=== PATIENT | male | born 1960 | race Caucasian/White ===

== ENCOUNTER 2021-06-21 11:39 | Emergency (ER) | payer OTHER ==
[2021-06-21 12:52] LABS: BASOPHIL 0.5 % (0-2); EOSINOPHIL 0.1 % (0-5); HCT 43.9 % (42.0-52.0); HGB 15.5 g/dl (13.2-18.0); LYMPHOCYTE 10.1 % (15-48); MCH 31.3 pg (25.0-31.0); MCHC 35.3 g/dL (32.0-36.0); MCV 88.5 fL (78.0-100.0); MONOCYTE 2.9 % (0-12); MPV 10.2 fL (6.0-9.5); NEUTROPHIL 85.8 % (41-80); NRBC 0; PLT 390 K/uL (150-400); RBC 4.96 M/uL (4.70-6.00); RDW 12.2 % (11.5-14.0); WBC 10.7 K/uL (4.0-10.5)
[2021-06-21 13:12] LABS: ALBUMIN 4.6 g/dL (3.4-5.0); BILIRUBIN - TOTAL 0.7 mg/dL (0.2-1.0); BUN/CREAT RATIO (CALC) 12.7 RATIO; CREATININE 1.02 mg/dL (0.67-1.17); GLOBULIN (CALCULATION) 3.8 g/dL; POTASSIUM 4.1 mmol/L (3.5-5.1); TOTAL PROTEIN 8.4 g/dL (6.4-8.2)
[2021-06-21 13:42] LABS: BILIRUBIN NEGATIVE (NEGATIVE); BLOOD TRACE-INTACT Ery/uL (NEGATIVE); CLARITY CLEAR (CLEAR); COLOR YELLOW (YELLOW); GLUCOSE (U) NORMAL (NORMAL); LEUKOCYTES NEGATIVE Leu/uL (NEGATIVE); NITRITE NEGATIVE (NEGATIVE); PROTEIN TRACE (LOW) mg/dL (NEGATIVE); UROBILINOGEN 0.2 mg/dL (0.2-1.0)
[2021-06-21 13:50] LABS: URINARY WBC RARE
[2021-06-21 13:51] LABS: BACTERIA TRACE; SQUAMOUS EPITHELIAL CELLS RARE
[2021-06-21] MEDS ORDERED: NORCO 5/3251 EACH PO (16:29)
[2021-06-21] MEDS ORDERED: ONDANSETRON HCL4 MG PO (16:29)
[2021-06-21] MEDS ORDERED: BENTYL10 MG PO (16:29)
== END 2021-06-21 17:13 | disposition home or self-care (01) ==
LOC: FER 11:39
PROVIDERS: Emergency Medicine
DX: R10.11 Right upper quadrant pain (principal); R11.2 Nausea with vomiting, unspecified; R10.9 Unspecified abdominal pain; I10 Essential (primary) hypertension
CPT/HCPCS: 36415; 80053; 81001; 84100; 85025; J1170; J1885; J2405; J7030